=== PATIENT | female | born 1970 | race Caucasian/White ===

== ENCOUNTER 2017-10-01 09:03 | Outpatient (CLI) | payer OTHER ==
--- NOTE | 2017-10-01 21:28 | XRay Report ---
FINAL REPORT EXAM: XR HAND BILAT 2V HISTORY: ARTHRITIS TECHNIQUE: four views of the left hand PRIORS: None. FINDINGS: There is diffuse osteopenia. There are advanced degenerative changes of the distal radial ulnar joint where there is joint space narrowing and prominent osteophyte formation. There is narrowing and sclerosis of the ulnar carpal joint. 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 Osteopenia
--- NOTE | 2017-10-01 22:41 | XRay Report ---
FINAL REPORT PROCEDURE: XR KNEE BILAT 1-2V TECHNIQUE: Bilateral knees, two views HISTORY: ARTHRITIS COMPARISON: No prior studies are available for comparison. FINDINGS: No acute fracture or dislocation is seen bilaterally. No joint effusion is seen bilaterally. Minimal tricompartmental joint space narrowing. No large osteophytes. IMPRESSION: Minimal tricompartmental degenerative joint space narrowingbilaterally
--- NOTE | 2017-10-01 23:30 | XRay Report ---
FINAL REPORT EXAM: XR SPINE LUMBOSACRAL 2-3V HISTORY: ARTHRITIS TECHNIQUE: 3 views of the lumbar spine PRIORS: None. FINDINGS: The lumbar vertebral bodies are normal in height. There is approximately 8 mm of anterolisthesis of L5 on S1. Otherwise, vertebral alignment is normal. The disc spaces appear well-preserved. There is degenerative facet hypertrophy and sclerosis at L5-S1. The soft tissues are unremarkable. IMPRESSION: Anterolisthesis of L5 on S1 secondary to facet arthropathy.
== END 2017-10-01 09:04 | disposition home or self-care (01) ==
LOC: XRAY 09:03
PROVIDERS: ATTEND Internal Medicine
DX: M17.0 Bilateral primary osteoarthritis of knee (principal); M19.042 Primary osteoarthritis, left hand; M18.9 Osteoarthritis of first carpometacarpal joint, unspecified; M85.841 Other specified disorders of bone density and structure, right hand; M85.842 Other specified disorders of bone density and structure, left hand; H04.123 Dry eye syndrome of bilateral lacrimal glands
CPT/HCPCS: 72100